=== PATIENT | female | born 1970 | race Caucasian/White ===

== ENCOUNTER 2022-11-16 07:57 | Outpatient (CLI) | payer BC, SELFPAY ==
--- NOTE | 2022-11-16 08:15 | CRLHL7_ITS ---
For Patients: As a result of the Century Cures Act, medical imaging exams and procedure reports are released immediately into your electronic medical record. You may view this report before your referring provider. If you have questions, please contact your health care provider. BILATERAL SCREENING MAMMOGRAM WITH COMPUTER-AIDED DETECTION AND TOMOSYNTHESIS TECHNIQUE: CC and MLO views were obtained. These mammographic images have been obtained using full-field digital technique. These mammographic images were interpreted with the benefit of computer-aided detection. Breast Tomosynthesis was used in this interpretation. COMPARISON FILM: 05/07/20, 11/17/17, 07/24/14. FINDINGS: The breasts are heterogeneously dense, which may obscure small masses IMPRESSION: There is no radiographic evidence for malignancy. ASSESSMENT: BI-RADS Category 1: Negative RECOMMENDATION: Routine screening mammogram in 1 year. A lay language report of this examination will be provided to the patient. Adama Cobb M.D. Diagnostic Radiologist [email or web address] Transcribed: 2:03 p.araceli jovel/Dictated by: Adama Cobb MD @ 11/16/2022 12:52:00 PM (Electronically Signed)
== END 2022-11-16 07:58 | disposition home or self-care (01) ==
LOC: MAMMO 07:58
PROVIDERS: PCP Physician Assistant; Visit Provider Physician Assistant
DX: Z12.31 Encounter for screening mammogram for malignant neoplasm of breast (principal); R92.2 Inconclusive mammogram
CPT/HCPCS: 77063; 77067

== ENCOUNTER 2024-01-13 15:25 | Outpatient (CLI) | payer BC, SELFPAY ==
--- OUTSIDE RECORDS SUMMARY | 2024-01-13 15:28 | XMS_ITS | Clinical Summary ---
Author Organization [employer] [facility] Address [place], [place] [address] Care Team Providers Care Director [facility] Name Role Phone Adama Garza Unavailable Unavailable Kamla Dean Primary Care Provider [phone]- [phone] Allergies No known active allergies Medications Medication Sig Dispensed Refills Start Date End Date Status citalopram (CELEXA) 20 mg tabletIndications:GA D (generalized anxiety disorder) Take 1.5 Tablets (30 mg) by mouth every morning. 150 Tablet 3 10/27/2023 Active LORazepam (Ativan) 0.5 mg tabIndications:anxie ty Take 1 Tablet (0.5 mg) by mouth once daily if needed for Anxiety. 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 Hip impingement syndrome 12/21/2011 Anxiety state, unspecified 08/08/2010 Resolved Problems Problem Noted Date Diagnosed Date Resolved Date Vulvar vestibulitis 01/28/2011 01/10/20 16 Encounters Date Type Department Care Team Description 10/27/2023 12:40 PM CDT Office Visit [facility] [address] [place] [address] Karen Krueger MD Medication Management 10/27/2023 Travel from Last 3 Months Immunizations Name Administration Dates Next Due Hepatitis B (Adult) 08/12/2023,03/11/2023,2022 Influenza, IIV3 (Age >=3 years) 06/02/2014,08/16 Influenza, IIV4 07/16/2022,,04/17/2020,07/12/2018, 08/25/2016 Td (Age >=7 Years) 12/12/1998 Tdap 10/13/2018 Family History Medical History Relation Name Comments Rheum arthritis Brother Hyperlipidemia Father Blood Disease Mother has antigen in her blood; apparently she is not a match to receive anyone else's blood Hypertension Mother Other Other cousin with RA Anesthesia Problem No Family History Relation Name Status Comments Brother Alive Father Alive Mother Alive Other Sister 1 Alive Sister 2 Alive Social History Tobacco Use Types Packs/Day Years Used Date Smoking Tobacco: Never Smokeless Tobacco: Never Tobacco Cessation:Counseling Given: Yes Alcohol Use Standard Drinks/Week Comments Yes 0 (1 standard drink = 0.6 oz pur e alcohol) PHQ-2 Answer Date Recorded PHQ-2 TOTAL SCORE 0 10/27/2023 Social Connections Answer Date Recorded Frequency of Communication with Friends and Fami ly 0 10/27/2023 Financial Resource Strain Answer Date R ecorded Difficulty of Paying Living Expenses 3 10/27/2023 Difficulty of Paying Living Expenses Not on file 10/27/2023 Food Insecurity Answer Date Recorded Worried About Running Out of Food in the Last Ye ar 1 10/27/2023 Transportation Needs Answer Date Record ed Lack of Transportation (Medical) 1 10/27/2023 Housing Stability Answer Date Recorded Unable to Pay for Housing in the Last Year 1 10/27/2023 Sex and Gender Information Value Date Recorded Sex Assigned at Not on file Gender Identity Not on file Sexual Orientation Not on file Obstetrics History Last Filed Vital Signs Vital Sign Reading Time Taken Comments Blood Pressure 128/80 10/27/2023 12:48 PM CDT Pulse 76 10/27/2023 12:48 PM CDT Temperature 36.9 ??C (98.5 ??F) 08/11/2022 2:16 PM CS T Respiratory Rate 19 08/08/2022 11:4 0 AM PASTRY BAKER Oxygen Saturation 98% 10/27/2023 12: 48 PM CDT Inhaled Oxygen Concentration - - Weight 84.3 kg (185 lb 12.8 oz) 024 12:48 PM CDT Height 172.1 cm (5' 7.76) 05/11/2023 1 1:36 AM CDT Body Mass Index 28.45 05/11/2023 11:36 AM CDT Plan of Treatment Health Maintenance Due Date Last Done Comments Zoster (shingles) series for age 50+ (1 of 2) 2022 COVID-19 vaccine series (2022-24 season) 2023 07/16/2022, 07/01/2021, 11/24/2020, Additional history exists Mammogram for age 45-75 11/08/2023 11/08/19 (Completed outside of [facility]), 08/11/2021 (Completed outside of [facility]), 05/07/2020, Additional history exists Influenza for age 50-64 04/09/2024 07/16/20 22, 06/28/2021, 04/17/2020, Additional history exists BMI (ht and wt on same day) for age 18+ 05/11/2024 05/11/2023, 03/18/2022, 03/10/2022, Additional history exists Depression screening for age 12+ 10/26/2024 10/27/2023, 05/11/2023, 08/11/2022, Additional history exists Pap test for age 21-65 02/11/2025 , 02/12/2020, 02/12/2014, Additional history exists Fecal testing sDNA-FIT (Cologuard) for age 45-75 05/31/2026 05/31/2023 Lipids for age 45-75 05/11/2028 05/11/2023 Tetanus booster 10/13/2028 10/13/2018, 01/08 (Declined), 12/12/1998 Tdap Completed 10/13/2018 HIV for age 15-65 Completed 05/11/2023 Hepatitis C screening for age 18-79 Completed 05/11/2023 Pneumococcal series for age 6-64 Aged Out No longer eligible based on patient's age to complete this topic Procedures Procedure Name Priority Date/Time Associated Diagnosis Comments SDNA-FIT EXTERNAL (COLOGUARD) Routine 05/31/2023 1:40 PM CDT Screening for colon cancer ANTI HIV 1/2 Routine 05/11/2023 12:11 PM CDT Encounter for screening for HIV ANTI HCV Routine 05/11/2023 12:11 PM CDT Need for hepatitis C screening test LIPID PANEL W REFLEX MEASURED LDL Routine 05/11/2023 12:11 PM CDT Screening cholesterol level SCAN-MAMMOGRAPHY REPORT 05/07/2020 12:00 AM CDT COMMERCIAL ESCROW ASSISTANT THIN PREP PAP SCREEN IMAGED Routine 02/12/2020 9:00 AM CDT from Last 3 Months or Most Recently Relevant to Health Maintenance Results * SDNA-FIT EXTERNAL (COLOGUARD) (05/31/2023 1:40 PM CDT) NONINV COLON CA DNA+OCC BLD SCRN STL-IMP Negative Negative 06/04/2023 2:46 AM CDT [facility] (CLIA #:[id number]) Comment: NEGATIVE TEST RESULT. A negative Cologuard result indicates a low likelihood that a colorectal cancer (CRC) or advanced adenoma (adenomatous polyps with more advanced pre-malignant features) ??is present. The chance that a person with a negative Cologuard test has a colorectal cancer is less than 1 in 1500 (negative predictive value >99.9%) or has an ??advanced adenoma is less than ??5.3% (negative predictive value 94.7%). These data are based on a prospective cross-sectional study of 10,000 individuals at average risk for colorectal cancer who were screened with both Cologuard and colonoscopy. (Florencia Waldron al, N Engl J Med 2014;370(14):1286- 1297) The normal value (reference range) for this assay is negative. COLOGUARD RE-SCREENING RECOMMENDATION: Periodic colorectal cancer screening is an important part of preventive healthcare for asymptomatic individuals at average risk for colorectal cancer. ??Following a negative Cologuard result, the [place] [employer] and U.S. Multi-Society Task Force screening guidelines recommend a Cologuard re-screening interval of 3 years. References: [place] [employer] Guideline for Colorectal Cancer Screening: https://www.cancer.org/cancer/gwhol-uggdkt-mwfcjo/kihwpyjrp-nacisjkrd-vctqwmw/ac s-rec ommendations.html.; Desean DK, Eliud DUMONT, Young ParraK, Colorectal Cancer Screening: Recommendations for Physicians and Patients from the U.S. Multi-Society Task Force on Colorectal Cancer Screening , Am J Gastroenterology 2017; 112:7876-5989. TEST DESCRIPTION: Composite algorithmic analysis of stool DNA-biomarkers with hemoglobin immunoassay. ?? Quantitative values of individual biomarkers are not reportable and are not associated with individual biomarker result reference ranges. Cologuard is intended for colorectal cancer screening of adults of either sex, 45 years or older, who are at average-risk for colorectal cancer (CRC). Cologuard has been approved for use by the U.S. FDA. The performance of Cologuard was established in a cross sectional study of average-risk adults aged 50-84. Cologuard performance in patients ages 45 to 49 years was estimated by sub-group analysis of near-age groups. Colonoscopies performed for a positive result may find as the most clinically significant lesion: colorectal cancer [4.0%], advanced adenoma (including sessile serrated polyps greater than or equal to 1cm diameter) [20%] or non- advanced adenoma [31%]; or no colorectal neoplasia [45%]. These estimates are derived from a prospective cross-sectional screening study of 10,000 individuals at average risk for colorectal cancer who were screened with both Cologuard and colonoscopy. (Florencia Waldron al, N Engl J Med 2014;370(14):9011-7089.) Cologuard may produce a false negative or false positive result (no colorectal cancer or precancerous polyp present at colonoscopy follow up). A negative Cologuard test result does not guarantee the absence of CRC or advanced adenoma (pre-cancer). The current Cologuard screening interval is every 3 years. ([place] [employer] and U.S. Multi-Society Task Force). Cologuard performance data in a 10,000 patient pivotal study using colonoscopy as the reference method can be accessed at the following location: www.OrdrIt/results. Additional description of the Cologuard test process, warnings and precautions can be found at www.[employer].com. Stool specimen (specimen) (Rectum) 05/31/2023 1:40 PM CDT 06/01/2023 4:22 PM CDT Kamla DIEGO URINE [facility] (CLIA #:[id number]) [place] [address], * LIPID PANEL W REFLEX MEASURED LDL (05/11/2023 12:11 PM CDT) CHOLESTEROL,TOTAL 198 100 - 199 mg/dL 05/12/2023 4:28 AM CDT [facility] Comment: Cholesterol, Total Reference Ranges Desirable <200 mg/dL Borderline 200-239 mg/dL High >=240 mg/dL TRIGLYCERIDES 148 <150 mg/dL 05/12/2023 4:28 AM CDT [facility] HDL CHOLESTEROL 57 >40 mg/dL 4:28 AM CDT [facility] NON-HDL CHOLESTEROL 141 <145 mg/dl 05/12/2023 4:28 AM CDT [facility] CHOL/HDL RATIO 3.47 <4.50 05/12/2023 4:28 AM CDT [facility] LDL CHOLESTEROL 111 <=130 mg/dL 05/12/2023 4:28 AM CDT [facility] VLDL CHOLESTEROL 30 <=30 mg/dL 05/12/2023 4:28 AM CDT [facility] PROVIDER ORDERED STATUS RANDOM 05/12/2023 4:28 AM CDT [facility] Blood BLOOD SPECIMEN / Unknown Venipuncture / Unknown 05/11/2023 12:11 PM CDT 05/11/2023 12:11 PM CDT Kamla DIEGO CHEMISTRY Performing Organization Address City/[facility]/ZIP Co de Phone Number [facility] [address] [place] [id number], [place] * ANTI HCV (05/11/2023 12:11 PM CDT) HEPATITIS C ANTIBODY Non-Reacti ve Non-React reagan 05/12/2023 3:56 AM CDT [facility] Comment:Please note, per www .CDC.gov: If a patient is known to be at high risk of HCV infection, or is symptomatic, and the physician's suspicion of HCV infection is high, HCV RNA testing is often employed and is of diagnostic value, even after an initial negative anti-HCV test result. Blood BLOOD SPECIMEN / Unknown Venipuncture / Unknown 05/11/2023 12:11 PM CDT 05/11/2023 12:11 PM CDT Kamla DIEGO SEND OUTS Performing Organization Address [facility] Co de Phone Number [facility] [address] [place] [address], [place] * ANTI HIV 1/2 (05/11/2023 12:11 PM CDT) HIV-1/HIV-2 SCREEN Non-Reacti ve Non-Reacti ve 05/12/2023 4:09 AM CDT [facility] Comment:HIV-1 p24 and HIV-1/ HIV-2 Ab Not Detected. Blood BLOOD SPECIMEN / Unknown Venipuncture / Unknown 05/11/2023 12:11 PM CDT 05/11/2023 12:11 PM CDT Kamla DIEGO SEND OUTS Performing Organization Address City/[facility]/ZIP Co de Phone Number [facility] [address] [place] [address] * SCAN-MAMMOGRAPHY REPORT (05/07/2020 12:00 AM CDT) Anatomical Region Laterality Modality Other Scanner OTHER * COMMERCIAL ESCROW ASSISTANT THIN PREP PAP SCREEN IMAGED (02/12/2020 9:00 AM CDT) Case Report Gynecologic Cytology Report ? Case: [id number] ? Authorizing Provider: ??Brynn Sherman MD ?? Collected: ? 02/12/2020 0900 ? Ordering Location: ? [facility] ?Received: ?02/14/2020 1533 ? First Screen: ?Willie Rodrigues ? Specimen: ?COMMERCIAL ESCROW ASSISTANT ThinPrep Vial Screening, Cervical/Vaginal ? 02/19/2020 10:54 AM CDT [facility] INTERPRETATION/ RESULT NEGATIVE FOR INTRAEPITHELIAL LESION OR MALIGNANCY (NIL) (none) 02/19/2020 10:54 AM CDT [facility] IMEN ADEQUACY Satisfactory for evaluation Endocervical component present 02/19/2020 10:54 AM CDT [facility] HPV REQUEST HPV and PAP 02/19/2020 10:54 AM CDT [facility] Date of LMP 01/22/2020 02/19/2020 10:54 AM CDT [facility] Last Pap Date 02/12/2014 02/19/2020 10:54 AM CDT [facility] Last Pap Result NIL 0 10:54 AM CDT [facility] Additional Information 02/19/2020 10:54 AM T [facility] Comment: Interpreted at [facility] - [address], [place] [address] Automated Review Successful 02/19/2020 10:54 AM T [facility] Comment:Specimen processed s uccessfully by automated options trader device, [employer] Imaging System, [employer] ANCILLARY TESTING COMMERCIAL ESCROW ASSISTANT HPV Ordered, Please see separate report 02/19/2020 10:54 AM [facility] Note The pap test is a screening technique, not a diagnostic procedure. It is used primarily to screen for squamous cancers and precursor lesions. Published studies have shown that it is subject to both false negative and false positive results. The pap test should not be used as the sole means to diagnose or exclude pre-malignant and malignant lesions. 02/19/2020 10:54 AM T [facility] Other (Cervical/Vagina l) 02/12/2020 9:00 AM CDT 02/14/2020 3:33 PM CDT Brynn Sherman MD PATHOLOGY/CYTOLOG Y [facility] [address] [place] [address], [place] from Last 3 Months or Most Recently Relevant to Health Maintenance Care Teams [facility] Relationship Specialty Start Date End Date Kamla Dean PA [address] [place] [address] PCP - General Physician Vocational Rehabilitation Administrator 10/27/23 Adama Garza Provider Nutrition 01/28/11
--- NOTE | 2024-01-13 15:40 | CRLHL7_ITS ---
For Patients: As a result of the Century Cures Act, medical imaging exams and procedure reports are released immediately into your electronic medical record. You may view this report before your referring provider. If you have questions, please contact your health care provider. BILATERAL SCREENING MAMMOGRAM WITH COMPUTER-AIDED DETECTION AND TOMOSYNTHESIS TECHNIQUE: CC and MLO views were obtained. These mammographic images have been obtained using full-field digital technique. These mammographic images were interpreted with the benefit of computer-aided detection. Breast Tomosynthesis was used in this interpretation. COMPARISON FILM: 11/16/22, 05/07/20, 11/17/17. FINDINGS: There are scattered areas of fibroglandular density. IMPRESSION: There is no radiographic evidence for malignancy. ASSESSMENT: BI-RADS Category 1: Negative RECOMMENDATION: Routine screening mammogram in 1 year. A lay language report of this examination will be provided to the patient. Adama Cobb M.D. Diagnostic Radiologist [email or web address] SP/Dictated by: Adama Cobb MD @ 01/14/2024 11:00:00 AM (Electronically Signed)
== END 2024-01-13 15:26 | disposition home or self-care (01) ==
PROVIDERS: PCP Physician Assistant; Visit Provider Physician Assistant
DX: Z12.31 Encounter for screening mammogram for malignant neoplasm of breast (principal)
CPT/HCPCS: 77063; 77067